=== PATIENT | male | born 1995 | race Caucasian/White ===

== ENCOUNTER 2016-10-05 14:35 | Emergency (ER) | payer OTHER ==
[~2016-10-05] VITALS: Ht 180.3 cm; Wt 59.0 kg
[2016-10-05 15:51] VITALS: BP 127/66
--- NOTE | 2016-10-05 15:51 | RAD ---
Three-view study of the right foot History: Dropped a heavy rock on foot. Pain and swelling of the fourth and fifth metatarsal region. Findings: There is a nondisplaced transverse fracture of the distal metaphysis of the fifth metatarsal bone. No dislocation or osteolytic process is seen. IMPRESSION: Post traumatic fracture of the distal fifth metatarsal bone.
[2016-10-05] MEDS ORDERED: HYDROCODONE/APAP 5/325MG TABLET. PO ONE (16:00)
[2016-10-05] MEDS ORDERED: HYDR-971 PO (16:06)
--- NOTE | 2016-10-05 16:07 | PHYS DOC ---
Past Medical History Past Medical History: No Pertinent History Past Surgical History: No Surgical History Alcohol Use: None Drug Use: None Adult General Chief Complaint Chief Complaint: FOOT INJURY PAIN HPI HPI Patient is a 21 year old male presents emergency department stating that he was outside with the dog's and who had dug a whole underneath fence. He states he has taken a rock to place inside the hole when he accidentally dropped on his right foot. He states that he is having increased pain along the fifth metatarsal area. Patient states he has been unable to bear weight. Patient denies any numbness or tingling into the toes. Patient has not taken anything for pain and discomfort. He states that this occurred earlier this afternoon. Review of Systems Review of Systems Constitutional: Denies fever or chills [] Eyes: Denies change in visual acuity, redness, or eye pain [] HENT: Denies nasal congestion or sore throat [] Respiratory: Denies cough or shortness of breath [] Cardiovascular: No additional information not addressed in HPI [] : Denies dysuria or hematuria [] Musculoskeletal: Denies back pain. C/o right foot pain Integument: Denies rash or skin lesions [] Neurologic: Denies headache, focal weakness or sensory changes [] Endocrine: Denies polyuria or polydipsia [] Current Medications Current Medications Current Medications Medications (Trade) Dose Ordered Sig/Josiane Start Time Stop Time Status Last Admin Dose Admin Acetaminophen/ Hydrocodone Bitart (Lortab 5/325) 1 tab 1X ONCE 10/05/16 16:00 10/05/16 16:01 DC 10/05/16 15:58 1 TAB Allergies Allergies Allergies Coded Allergies Type Severity Reaction Last Updated Verified No Known Drug Allergies 10/05/16 No Physical Exam Physical Exam Constitutional: Well developed, well nourished, no acute distress, non-toxic appearance. [] HENT: Normocephalic, atraumatic, bilateral external ears normal, oropharynx moist, no oral exudates, nose normal. [] Eyes: PERRLA, EOMI, conjunctiva normal, no discharge. [] Neck: Normal range of motion, no tenderness, supple, no stridor. [] Cardiovascular:Heart rate regular rhythm, no murmur [] Lungs & Thorax: Bilateral breath sounds clear to auscultation [] Skin: Warm, dry, no erythema, no rash. [] Back: No tenderness Extremities: Right fifth metatarsal tenderness, no cyanosis, no clubbing, ROM intact, no edema. Slight bruising noted along the fifth metatarsal area. Good sensation noted. Cap refill brisk less than 2 seconds. Peripheral pulses 2+. Neurologic: Alert and oriented X 3, normal motor function, normal sensory function, no focal deficits noted. [] Psychologic: Affect normal, judgement normal, mood normal. [] Current Patient Data Vital Signs Vital Signs Date Time Temp Pulse Resp B/P Pulse Ox O2 Delivery O2 Flow Rate FiO2 10/05/16 15:58 18 Room Air 10/05/16 15:51 98.4 72 100 98.4 EKG EKG [] Radiology/Procedures Radiology/Procedures [facility] [address] [place] [address] IMAGING REPORT Signed PATIENT: ULISES MILLER ACCOUNT: [id number] : 1995 LOCATION: ER AGE: 21 SEX: M EXAM STATUS: REG ER ORD. PHYSICIAN: KERRY GRAJEDA NP REASON: pain and injury to the right foot PROCEDURE: FOOT RIGHT 3V Three-view study of the right foot History: Dropped a heavy rock on foot. Pain and swelling of the fourth and fifth metatarsal region. Findings: There is a nondisplaced transverse fracture of the distal metaphysis of the fifth metatarsal bone. No dislocation or osteolytic process is seen. IMPRESSION: Post traumatic fracture of the distal fifth metatarsal bone. DICTATED and SIGNED BY: BARBI RIVERA MD DATE: 10/05/16 1546 CC: KERRY GRAJEDA [employer]WER; NO PCP ~ [] Course & Med Decision Making Course & Med Decision Making Pertinent Labs and Imaging studies reviewed. (See chart for details) x-rays were positive for fracture along the fifth metatarsal area. Patient will be placed in a short leg posterior splint as well as crutches. He provided with hydrocodone for pain and discomfort. He was instructed this medication will cause drowsiness do not take any be alert and oriented. Patient was also encouraged to take ibuprofen 800 mg every 8 hours. Ice packs on 20 minutes off 20 minutes several times today. Elevation as much as possible. Patient will also be provided with crutches for no weight bearing. Patient was provided with signs and symptoms to return back to emergency department. Patient agrees with discharge instructions treatment regimens and follow-up recommendations. He was provided with orthopedic name and number to follow up with. Madisyn Disclaimer Madisyn Disclaimer This electronic medical record was generated, in whole or in part, using a voice recognition dictation system. Departure Departure Impression: Primary Impression: Fracture of fifth metatarsal bone of right foot Disposition: HOME, SELF-CARE Condition: STABLE Referrals: NO PCP (PCP) RYAN LY MD Patient Instructions: Metatarsal Fracture, Undisplaced Additional Instructions: Home to rest Ice packs on 20 minutes and off 20 minutes several times a day Elevation as much as possible Ibuprofen 800 mg every 8 hours with food stop taking if you develop upset stomach Ovalo for severe pain. This medication will cause drowsiness do not take if you need to be alert and oriented No weight bearing to the right foot. Use the crutches whenever you up ambulating Followup with orthopedic in 3-5 days Return to emergency department as needed for signs and symptoms that become worse. Scripts Hydrocodone/Apap 5-325 ([place] 5-325 Tablet)1 Each Tablet1 Tab PO PRN Q6HRS PRN PAIN #15 TAB Prov:KERRY GRAJEDA NP 10/05/16 Splinting Splinting : Location: right foot Pre-Made Type: Hand-Made Type: orthoglass Splint: posterior short leg splint Pre-Proc Neuro Vasc Exam: normal Post-Proc Neuro Vasc Exam: normal KERRY GRAJEDA NP Oct 05, 2016 16:07
== END 2016-10-05 16:29 | disposition home or self-care (01) ==
LOC: ER 14:35
DX: S92.354A Nondisplaced fracture of fifth metatarsal bone, right foot, initial encounter for closed fracture (principal); W20.8XXA Other cause of strike by thrown, projected or falling object, initial encounter; Y93.89 Activity, other specified; Y99.8 Other external cause status; Y92.89 Other specified places as the place of occurrence of the external cause
CPT/HCPCS: 29515; 73630; 99284-25

== ENCOUNTER 2016-10-06 12:51 | Emergency (ER) | payer OTHER ==
[~2016-10-06] VITALS: Ht 180.3 cm; Wt 59.0 kg
[~2016-10-06 12:51] MED LIST: HYDR-971 PO
[2016-10-06 14:00] VITALS: BP 119/64
--- NOTE | 2016-10-06 14:08 | PHYS DOC ---
Past Medical History Past Medical History: No Pertinent History Past Surgical History: No Surgical History Alcohol Use: None Drug Use: None Adult General Chief Complaint Chief Complaint: PAIN CONTROL HPI HPI Patient is a 21 year old male presents emergency department for the second time in 2 days. Patient was seen here yesterday for fracture of the fifth right metatarsal. He was provided with hydrocodone encouraged to use ice packs and elevation as much as possible. Patient returns back today stating that he has been up meandering around for most of the day. He states he is having increased throbbing type pain in the foot. He last took hydrocodone at 9:00 this morning he has not taken any ibuprofen today. His toes appear to be swollen. Peripheral pulses are 2+ cap refill brisk less than 2 seconds patient does have good sensation. He is using his crutches to ambulate. Review of Systems Review of Systems Constitutional: Denies fever or chills [] Eyes: Denies change in visual acuity, redness, or eye pain [] HENT: Denies nasal congestion or sore throat [] Respiratory: Denies cough or shortness of breath [] Cardiovascular: No additional information not addressed in HPI [] GI: Denies abdominal pain, nausea, vomiting, bloody stools or diarrhea [] : Denies dysuria or hematuria [] Musculoskeletal: Denies back pain. C/o pain to the right foot Integument: Denies rash or skin lesions [] Neurologic: Denies headache, focal weakness or sensory changes [] Current Medications Current Medications Current Medications Medications (Trade) Dose Ordered Sig/[facility] Start Time Stop Time Status Last Admin Dose Admin Fentanyl Citrate (Fentanyl 2ml Vial) 50 mcg 1X ONCE 10/06/16 14:30 10/06/16 14:31 DC 10/06/16 14:31 50 MCG Allergies Allergies Allergies Coded Allergies Type Severity Reaction Last Updated Verified No Known Drug Allergies 10/06/16 No Physical Exam Physical Exam Constitutional: Well developed, well nourished, no acute distress, non-toxic appearance. [] HENT: Normocephalic, atraumatic, bilateral external ears normal, oropharynx moist, no oral exudates, nose normal. [] Eyes: PERRLA, EOMI, conjunctiva normal, no discharge. [] Neck: Normal range of motion, no tenderness, supple, no stridor. [] Cardiovascular:Heart rate regular rhythm, no murmur [] Lungs & Thorax: Bilateral breath sounds clear to auscultation [] Skin: Warm, dry, no erythema, no rash. [] Back: No tenderness Extremities: Right 5th metatarsal tenderness, no cyanosis, no clubbing, ROM intact, no edema. Pedal pulses 2+ cap refill brisk less than 2 seconds. Patient does appear to have swelling in the toes. Neurologic: Alert and oriented X 3, normal motor function, normal sensory function, no focal deficits noted. [] Psychologic: Affect normal, judgement normal, mood normal. [] Current Patient Data Vital Signs Vital Signs Date Time Temp Pulse Resp B/P Pulse Ox O2 Delivery O2 Flow Rate FiO2 10/06/16 14:31 16 98 Room Air 10/06/16 14:00 98.2 90 98.2 EKG EKG [] Radiology/Procedures Radiology/Procedures [] Course & Med Decision Making Course & Med Decision Making Pertinent Labs and Imaging studies reviewed. (See chart for details) Patient was offered an injection of fentanyl for pain reduction. Patient states he does not like shots he feels that he is pain is okay at this time. Family member then came out to the desk requesting to know what type of medication he was going to be given. It was explained to her that he was been provided with narcotic pain medication to help with her pain. Patient's family member continued to state that they were still not identified the medication name. Medication name was provided to the patient and family with patient and family stating that they're not sure what that medication will do. Once again was explained to them that this medication is for pain. Nursing staff provided permission to the patient the need of medication pain medication as well as elevation and ice pack and staying off the ankle and foot as much as possible. Patient still remained confused as well as the family member. Nursing staff once again reiterated multiple different times the importance of ice packs elevation pain medication and ibuprofen as well as staying off the foot and resting. Patient will be discharged home in stable condition recommended ibuprofen 800 mg every 8 hours. Splint to patient he needs to stay home and keep his foot elevated that anytime he lowers that foot down he is going to have increased pain and throbbing this. Also recommended elevation as much as possible. Patient will be discharged home with signs and symptoms to return back to emergency department. Patient agrees with discharge instructions treatment regimens and follow-up recommendations. [] Dragon Disclaimer Dragon Disclaimer This electronic medical record was generated, in whole or in part, using a voice recognition dictation system. Departure Departure Impression: Primary Impression: Inadequate pain control Disposition: HOME, SELF-CARE Condition: STABLE Referrals: NO PCP (PCP) Patient Instructions: Metatarsal Fracture, Undisplaced Additional Instructions: Home to rest Ice packs on 20 minutes off 20 minutes several times a day Elevation as much as possible [place] as prescribed Ibuprofen 800 mg every 8 hours with food stop taking if you develop upset stomach Followup with orthopedic next week Return to emergency department as needed for signs and symptoms that become worse. KERRY GRAJEDA NP Oct 06, 2016 14:08
[2016-10-06] MEDS ORDERED: FENTANYL PF 100 MCG/2 ML VIAL. IM ONE (14:30)
== END 2016-10-06 14:54 | disposition home or self-care (01) ==
LOC: ER 12:51
DX: M79.671 Pain in right foot (principal); M79.89 Other specified soft tissue disorders
CPT/HCPCS: 96372; 99283; J3010